=== PATIENT | male | born 1940 | race Caucasian/White ===

== ENCOUNTER 2016-06-10 10:01 | Emergency (ER) | payer MEDICARE, BC ==
[~2016-06-10] VITALS: Ht 180.3 cm; Wt 83.0 kg
[~2016-06-10 10:01] MED LIST: CILO100T PO; CLOP75 PO; ESZO3 PO; FLOV100A IN; GLUCTAB OR; LEVA500T PO; LEVO112T2 PO; NUVI150T2 OR; OMEP20TA OR; OXYC30TA PO; PRED20 PO; SALM50I INH; SPIRCAP INH; TAMS0.4C67 PO; VYTO10TA32 PO; WAL-10TA2 PO; Z.0.OXYGEN INH; [UNRECOGNIZED DRUG - CODE]
[2016-06-10 10:06] VITALS: BP 131/78; PULSE 96; RESP 18; TEMP 97.5; O2SAT 96
[2016-06-10] MEDS ORDERED: METF500T PO (10:43)
[2016-06-10] MEDS ORDERED: LYSI500C PO (10:43)
[2016-06-10] MEDS ORDERED: COQ-100C2 PO (10:43)
[2016-06-10] MEDS ORDERED: ROFL1TAB2 PO (10:43)
[2016-06-10] MEDS ORDERED: PRED10 PO (10:43)
[2016-06-10] MEDS ORDERED: ESZO1TAB4 PO (10:43)
[2016-06-10] MEDS ORDERED: MULT-135 PO (10:43)
[2016-06-10] MEDS ORDERED: LEVO-168 PO (10:43)
[2016-06-10] MEDS ORDERED: OMEP20CA2 PO (10:43)
[2016-06-10] MEDS ORDERED: OXYC30TA PO (10:43)
[2016-06-10] MEDS ORDERED: B CO1TAB2 PO (10:43)
[2016-06-10] MEDS ORDERED: GLYB2.5T3 PO (10:43)
[2016-06-10] MEDS ORDERED: AZIT500T2 PO (10:43)
[2016-06-10] MEDS ORDERED: VYTO10TA8 PO (10:43)
[2016-06-10] MEDS ORDERED: CLOP75TA PO (10:43)
[2016-06-10] MEDS ORDERED: ARMO250T PO (10:43)
[2016-06-10] MEDS ORDERED: TRAM50TA PO (10:43)
[2016-06-10] MEDS ORDERED: TAMS0.4C4 PO (10:43)
[2016-06-10] MEDS ORDERED: LORA-361 PO (10:43)
[2016-06-10] MEDS ORDERED: FLUT1SPR17 EACH NARE (10:43)
[2016-06-10] MEDS ORDERED: CILO100T PO (10:43)
[2016-06-10] MEDS ORDERED: ONDANSETRON HCL 4 MG/2 ML VIAL IVP ONE (10:45)
[2016-06-10] MEDS ORDERED: ALUMINUM/MAGNESIUM/SIMETH 30 ML CUP PO ONE (10:45)
[2016-06-10] MEDS ORDERED: LIDOCAINE VISCOUS 2% SOLN 15 ML UDC PO ONE (10:45)
[2016-06-10] MEDS ORDERED: FAMOTIDINE 20 MG/2 ML VIAL IV PUSH ONE (10:45)
[2016-06-10] MEDS ORDERED: SODIUM CHLORIDE 0.9% FLUSH 5 ML FLUSH IVF PRN (10:45)
[2016-06-10] MEDS ORDERED: PANTOPRAZOLE SODIUM 40 MG VIAL IVP ONE (10:45)
--- NOTE | 2016-06-10 10:52 | PD ---
HPI Chief Complaint: Abdominal Pain Time Seen by Provider: 10:42 Travel History International Travel<30 days: No Contact w/Intl Traveler<30days: No Traveled to known affect area: No History of Present Illness HPI She presents with complaints of epigastric abdominal pain times one day. Denies any nausea or vomiting. Denies any previous abdominal surgeries. Denies any change in bowel movements. Last bowel movement yesterday. Denies fever. He does have kidney stones and is scheduled for lithotripsy this week. Takes pain medication every 4 hours chronically. PFSH Past Medical History Hx Anticoagulant Therapy: Yes (PLAVIX) Arthritis: Yes Asthma: No Blood Disorders: No Anxiety: No Depression: No Heart Rhythm Problems: No Cancer: Yes (LUNG CA) Cardiovascular Problems: Yes (CHOL) High Cholesterol: Yes Chemotherapy: Yes Chest Pain: No Congestive Heart Failure: Yes (states no but recal says yes ) COPD: Yes Cerebrovascular Accident: No Diabetes: Yes Patient Takes Glucophage: Yes Diminished Hearing: No Endocrine: No Gastrointestinal Disorders: No GERD: No Glaucoma: No Genitourinary: No Headaches: No Hepatitis: No Hiatal Hernia: No Hypertension: Yes Immune Disorder: No Implanted Vascular Access Dvce: No Kidney Stones: No Musculoskeletal: No Neurologic: No Psychiatric: No Reproductive: No Respiratory: Yes (COPD) Immunizations Current: Yes Migraines: No Myocardial Infarction: No Radiation Therapy: Yes Renal Failure: No Seizures: No Sickle Cell Disease: No Sleep Apnea: No Thyroid Disease: No Ulcer: No Influenza Vaccination: Yes PNEUMOCCOCAL Vaccine (Year): 208 Past Surgical History Abdominal Surgery: No AICD: No Appendectomy: No Arteriovenous Shunt: No Cardiac Surgery: No Cholecystectomy: No Ear Surgery: No Endocrine Surgery: No Eye Surgery: No Genitourinary Surgery: No Gynecologic Surgery: No Insulin Pump: No Joint Replacement: No Neurologic Surgery: No Pacemaker: No Thoracic Surgery: No Other Surgery: Yes (1/2 OF RT LUNG REMOVED 12 YRS AGO) Social History Alcohol Use: Yes (OCC) Tobacco Use: No Substance Use: No Allergies-Medications (Allergen,Severity, Reaction): Coded Allergies: No Known Allergies (Verified , 06/10/16) Reported Meds & Prescriptions Reported Meds & Active Scripts Active Reported Hm Allergy Relief Nasal S (Fluticasone Propionate (Nasal)) 50 Mcg/Act Spr 1 [place] EACH NARE HS Clopidogrel (Clopidogrel Bisulfate) 75 Mg Tab 75 Mg PO DAILY Vytorin (Ezetimibe-Simvastatin) 10-20 Mg Tab 1 Tab PO HS Eszopiclone 3 Mg Tab 3 Mg PO HS PRN Claritin (Loratadine) 10 Mg Tab 10 Mg PO DAILY Glyburide 2.5 Mg Tab 2.5 Mg PO BID Take with meals at the same time each day Azithromycin 500 Mg Tab 500 Mg PO M/W/ Cilostazol 100 Mg Tab 100 Mg PO BID Daliresp (Roflumilast) 500 Mcg Tab 500 Mcg PO DAILY Prednisone 10 Mg Tab 10 Mg PO M/W/F Nuvigil (Armodafinil) 250 Mg Tab 250 Mg PO DAILY Metformin (Metformin HCl) 500 Mg Tab 500 Mg PO BIDPC With meals Tamsulosin (Tamsulosin HCl) 0.4 Mg Cap 0.4 Mg PO HS Omeprazole 20 Mg Cap 1 Tab PO DAILY Levothyroxine (Levothyroxine Sodium) 112 Mcg Tab 112 Mcg PO DAILY Coq-10 (Coenzyme Q10 (Ubidecarenone)) 100 Mg Cap 1 Cap PO DAILY Multi Vitamin (Multiple Vitamin) 1 Tab Tab 1 Tab PO DAILY Oxycodone (Oxycodone HCl) 30 Mg Tab 30 Mg PO Q4HR Tramadol (Tramadol HCl) 50 Mg Tab 50 Mg PO TID Lysine 500 Mg Cap 1,000 Mg PO DAILY B Complex W/ C 1 Tab Tab 1 Tab PO DAILY Review of Systems General / Constitutional: No: Fever Eyes: No: Visual changes HENT: No: Headaches Cardiovascular: No: Chest Pain or Discomfort Respiratory: No: Shortness of Breath Gastrointestinal: Positive: Abdominal Pain Genitourinary: No: Dysuria Musculoskeletal: No: Pain Skin: No Rash Neurologic: No: Weakness Psychiatric: No: Depression Endocrine: No: Polydipsia Hematologic/Lymphatic: No: Easy Bruising Physical Exam Narrative GENERAL: Well-nourished, well-developed patient. SKIN: Warm and dry. HEAD: Normocephalic. EYES: No scleral icterus. No injection or drainage. NECK: Supple, trachea midline. No JVD or lymphadenopathy. CARDIOVASCULAR: Regular rate and rhythm without murmurs, gallops, or rubs. RESPIRATORY: Breath sounds equal bilaterally. No accessory muscle use. GASTROINTESTINAL: Abdomen soft, tender in the epigastric region nondistended. MUSCULOSKELETAL: No cyanosis, or edema. BACK: Nontender without obvious deformity. No CVA tenderness. Data Data Last Documented VS Vital Signs Date Time Temp Pulse Resp B/P Pulse Ox O2 Delivery O2 Flow Rate FiO2 06/10/16 13:33 95 18 123/58 97 Nasal Cannula 3 06/10/16 10:06 97.5 Orders Complete Blood Count With Diff (06/10/16 10:42) Comprehensive Metabolic Panel (06/10/16 10:42) Lipase (06/10/16 10:42) Lactic Acid (06/10/16 10:42) Urinalysis - C+S If Indicated (06/10/16 10:42) Ct Abd/Pel W Iv Contrast(Rout) (06/10/16 10:42) Iv Access Insert/Monitor (06/10/16 10:42) Ecg Monitoring (06/10/16 10:42) Oximetry (06/10/16 10:42) Ondansetron Inj (Zofran Inj) (06/10/16 10:45) Pantoprazole Inj (Protonix Inj) (06/10/16 10:45) Sodium Chloride 0.9% Flush (Ns Flush) (06/10/16 10:45) Famotidine Inj (Pepcid Inj) (06/10/16 10:45) Al-Mag Hy-Si 40-40-4 Mg/Ml Liq (Mag-Al P (06/10/16 10:45) Lidocaine 2% Viscous (Xylocaine 2% Visco (06/10/16 10:45) Oral Contrast - Adult (06/10/16 11:41) Diatrizoate Liq ( Gastroview Liq) (06/10/16 11:46) Oxycodone (Roxicodone) (06/10/16 12:15) Iohexol 350 Inj (Omnipaque 350 Inj) (06/10/16 13:05) Labs Laboratory Tests Test 06/10/16 06/10/16 10:55 13:17 White Blood Count 5.8 TH/MM3 Red Blood Count 4.88 MIL/MM3 Hemoglobin 14.5 GM/DL Hematocrit 44.0 % Mean Corpuscular Volume 90.2 FL Mean Corpuscular Hemoglobin 29.8 PG Mean Corpuscular Hemoglobin 33.0 % Concent Red Cell Distribution Width 13.9 % Platelet Count 183 TH/MM3 Mean Platelet Volume 8.6 FL Neutrophils (%) (Auto) 76.0 % Lymphocytes (%) (Auto) 9.7 % Monocytes (%) (Auto) 13.0 % Eosinophils (%) (Auto) 1.0 % Basophils (%) (Auto) 0.3 % Neutrophils # (Auto) 4.3 TH/MM3 Lymphocytes # (Auto) 0.6 TH/MM3 Monocytes # (Auto) 0.8 TH/MM3 Eosinophils # (Auto) 0.1 TH/MM3 Basophils # (Auto) 0.0 TH/MM3 CBC Comment DIFF FINAL Differential Comment Sodium Level 139 MEQ/L Potassium Level 3.6 MEQ/L Chloride Level 101 MEQ/L Carbon Dioxide Level 28.4 MEQ/L Anion Gap 10 MEQ/L Blood Urea Nitrogen 9 MG/DL Creatinine 0.74 MG/DL Estimat Glomerular Filtration 103 ML/MIN Rate Random Glucose 111 MG/DL Lactic Acid Level 1.1 mmol/L Calcium Level 8.4 MG/DL Total Bilirubin 0.5 MG/DL Aspartate Amino Transf 15 U/L (AST/SGOT) Alanine Aminotransferase 20 U/L (ALT/SGPT) Alkaline Phosphatase 56 U/L Total Protein 7.6 GM/DL Albumin 3.3 GM/DL Lipase 64 U/L Urine Collection Type CLEAN CATCH Urine Color YELLOW Urine Turbidity SLIGHT Urine pH 6.0 Urine Specific [place] 1.016 Urine Protein 30 mg/dL Urine Glucose (UA) NEG mg/dL Urine Ketones 40 mg/dL Urine Occult Blood LARGE Urine Nitrite NEG Urine Bilirubin NEG Urine Leukocyte Esterase NEG Urine RBC 100-200 /hpf Urine Squamous Epithelial 6-8 /hpf Cells Urine Amorphous Sediment MOD Microscopic Urinalysis Comment CULT NOT INDICATED Urine Collection Time 1318 MDM Medical Decision Making Medical Screen Exam Complete: Yes Emergency Medical Condition: Yes Differential Diagnosis Gastritis, gastric ulcer, duodenal ulcer, pancreatitis Narrative Course Assessment and plan discussed with patient and at bedside. labs reviewed Last 72 hours Impressions Abdomen/Pelvis CT 06/10/16 1042 Signed Impressions: Service Date/Time: Friday, June 10, 2016 12:57 - CONCLUSION: 1. Mild obstructive uropathy secondary to a left mid ureteral calculus measuring 5-6 mm. 2. Diverticulosis without diverticulitis. 3. Subcentimeter hepatic low-density likely benign. Jean Claude Mayfield MD Diagnosis Primary Impression: Epigastric discomfort Patient Instructions: General Instructions Additional Instructions: Increase omeprazole to twice a day, start Zantac 150 mg by mouth twice a day, follow-up with PCP to assess progress. Keep regular scheduled appointment for lithotripsy. Encouraged a bland high-fiber BRAT diet. Encouraged to avoid aggravating factors of reflux including but not limited to alcohol tobacco late large meals spicy meals and weight Med/Other Pt SpecificInfo: Prescription(s) given Disposition: 01 DISCHARGE HOME Condition: Good Constantino Powell MD Jun 10, 2016 10:52
[2016-06-10 10:59] VITALS: O2SAT 98
[2016-06-10 11:03] LABS: AUTOMATED NEUTROPHIL # 4.3 TH/MM3 (1.8-7.7); BASOPHIL % 0.3 % (0.0-2.0); EOSINOPHIL # 0.1 TH/MM3 (0-0.4); HEMO FLAGS DIFF FINAL; LYMPH % 9.7 % (9.0-44.0); LYMPHOCYTE # 0.6 TH/MM3 (1.0-4.8); MEAN CELL VOLUME 90.2 FL (80.0-100.0); MEAN CORPUSCULAR HEMOGLOBIN 29.8 PG (27.0-34.0); PLATELET COUNT 183 TH/MM3 (150-450); RED BLOOD COUNT 4.88 MIL/MM3 (4.50-5.90); RED CELL DISTRIBUTION WIDTH 13.9 % (11.6-17.2); WHITE BLOOD COUNT 5.8 TH/MM3 (4.0-11.0)
[2016-06-10 11:09] LABS: CHLORIDE 101 MEQ/L (98-107); POTASSIUM 3.6 MEQ/L (3.5-5.1); SODIUM (NA) 139 MEQ/L (136-145)
[2016-06-10 11:13] LABS: ANION GAP 10 MEQ/L (5-15); BICARBONATE 28.4 MEQ/L (21.0-32.0)
[2016-06-10 11:14] LABS: BLOOD UREA NITROGEN 9 MG/DL (7-18)
[2016-06-10 11:16] LABS: ALT (GPT) 20 U/L (12-78); AST (GOT) 15 U/L (15-37); GLOMERULAR FILTRATION RATE 103 ML/MIN (>89)
[2016-06-10 11:18] LABS: TOTAL BILIRUBIN ADULT 0.5 MG/DL (0.2-1.0)
[2016-06-10 11:19] LABS: ALKALINE PHOSPHATASE 56 U/L (45-117)
[2016-06-10] MEDS ORDERED: DIATRIZOATE MEGLUM/DIATRIZOATE SOD 9 ML CUP ONE (11:46)
[2016-06-10] MEDS ORDERED: IOHEXOL 350 MG/ML 10 ML VIAL (for RAD DIAG) IV ONE (13:05)
[2016-06-10 13:21] LABS: BLOOD, URINE LARGE (NEG); GLUCOSE,URINE NEG (NEG); KETONE, URINE 40 mg/dL (NEG); NITRITE,URINE NEG (NEG)
[2016-06-10 13:22] LABS: METHOD OF COLLECTION CLEAN CATCH; URINE COLOR YELLOW (YELLW/STRAW)
--- NOTE | 2016-06-10 13:26 | RADHPO ---
EXAM DATE/TIME: 06/10/2016 12:57 [facility] COMPARISON: CT ABDOMEN & PELVIS W CONTRAST, April 07, 2012, 18:12. INDICATIONS : Umbilical abdomen pain for three days. IV CONTRAST: 71 cc Omnipaque 350 (iohexol) IV ORAL CONTRAST: Prescribed oral contrast ingested. RADIATION DOSE: 14.74 CTDIvol (mGy) MEDICAL HISTORY : Renal calculi. Chronic obstructive pulmonary disease. diabetes, hypertension, lung cancer SURGICAL HISTORY : Lobectomy. ENCOUNTER: Initial ACUITY: 3 days PAIN SCALE: 5/10 LOCATION: umbilical abdomen TECHNIQUE: Volumetric scanning of the abdomen and pelvis was performed. Using automated exposure control and ad justment of the mA and/or kV according to patient size, radiation dose was kept as low as reasonably achievable to obtain optimal diagnostic quality images. FINDINGS: LOWER LUNGS: The visualized lower lungs are clear. LIVER: Homogeneous density without dilation of the biliary tree. No calcified gallstones. Subcentimeter low densities. Calcified lymph nodes in the darcy hepatis. SPLEEN: Normal size without lesion. PANCREAS: Within normal limits. KIDNEYS: Normal in size and shape. There is no mass, stone or hydronephrosis on the right. Mild obstructive u ropathy in the left secondary to a left mid ureteral calculus measuring 5-6 mm. ADRENAL GLANDS: Within normal limits. VASCULAR: There is no aortic aneurysm. BOWEL/MESENTERY: Diverticulosis without diverticulitis. There is no free intraperitoneal air or fluid. ABDOMINAL WALL: Within normal limits. RETROPERITONEUM: There is no lymphadenopathy. BLADDER: No wall thickening or mass. REPRODUCTIVE: Within normal limits. INGUINAL: There is no lymphadenopathy or hernia. MUSCULOSKELETAL: Within normal limits for patient age. CONCLUSION: 1. Mild obstructive uropathy secondary to a left mid ureteral calculus measuring 5-6 mm. 2. Diverticulosis without diverticulitis. 3. Subcentimeter hepatic low-density likely benign. Jean Claude Mayfield MD on June 10, 2016 at 13:22 Board Certified Radiologist. This report was verified electronically.
[2016-06-10 13:28] LABS: COMMENT (UR) CULT NOT INDICATED; COMMENT2 (UR) MUCOUS PRESENT; CULTURE IF INDICATED CULT NOT INDICATED; RBC, URINE 100-200 /hpf (0-3)
[2016-06-10 13:33] VITALS: BP 123/58; PULSE 95; RESP 18; O2SAT 97
== END 2016-06-10 14:10 | disposition home or self-care (01) ==
LOC: PHED 10:01
DX: R10.13 Epigastric pain (principal); N20.0 Calculus of kidney; E78.00 Pure hypercholesterolemia, unspecified; J44.9 Chronic obstructive pulmonary disease, unspecified; E11.9 Type 2 diabetes mellitus without complications; I10 Essential (primary) hypertension
CPT/HCPCS: 74177; 80053; 81001; 83605; 83690; 85025; 96374; 96375; 99284; C9113; J2405; Q9963; Q9967

== ENCOUNTER → 2016-06-28 | Day surgery (SDC) | payer MEDICARE, BC ==
[~2016-06-28] MED LIST changes: +ARMO250T PO; +AZIT500T2 PO; +B CO1TAB2 PO; -CLOP75 PO; +CLOP75TA PO; +COQ-100C2 PO; +ESZO1TAB4 PO; -ESZO3 PO; -FLOV100A IN; +FLUT1SPR17 EACH NARE; -GLUCTAB OR; +GLYB2.5T3 PO; -LEVA500T PO; +LEVO-168 PO; -LEVO112T2 PO; +LIDOCAINE HCL 1% PF 30 ML VIAL INFIL ONE; +LORA-361 PO; +LYSI500C PO; +MEPERIDINE HCL 25 MG/ML VIAL IV ONE; +METF500T PO; +MIDAZOLAM HCL 2 MG/2 ML VIAL IV ONE; +MULT-135 PO; -NUVI150T2 OR; +OMEP20CA2 PO; -OMEP20TA OR; +PRED10 PO; -PRED20 PO; +PROPOFOL 200 MG/20 ML AMP IV ONE; +ROFL1TAB2 PO; -SALM50I INH; +SODIUM CHLORIDE 0.9% 10 ML VIAL ONE; -SPIRCAP INH; +TAMS0.4C4 PO; -TAMS0.4C67 PO; +TRAM50TA PO; -VYTO10TA32 PO; +VYTO10TA8 PO; -WAL-10TA2 PO; -Z.0.OXYGEN INH; -[UNRECOGNIZED DRUG - CODE]; +methylPREDNISolone ACETATE 40 MG/ML VIAL I-ARTICULR ONE
--- NOTE | 2016-06-28 13:40 | M6 ---
cc: ABBY LORD M.D. DATE 06/28/2016 DATE OF 1940 PROCEDURE Radiofrequency rhizotomy multiple bilateral lumbar facet joints (bilateral L3-4, L4-5 and L5-S1 facet joints Three levels are being done because imaging studies show arthritis in all lumbar facet joints and because each facet joint is innervated by the medial branches from the nerves above and below that particular joint. The patient reported 50% or greater pain relief from previous diagnostic facet joint blocks done with fluoroscopic guidance. PROCEDURE NOTE History and physical was completed and signed. Consent was signed. Procedure site was marked. Medications were listed and reconciled. Pain score was recorded. Allergies were noted. Time out was taken. Fluoroscopy time was recorded where applicable. Sedation was administered or directed by Dr. Lord. The patient was given oxygen. The patient was monitored by a registered nurse. Total procedure time was greater than 15 minutes. An IV was started, blood pressure cuff, pulse oximeter and EKG were applied. The patient was placed in the prone position on a [place] table, sedated with small amounts of Versed and fentanyl and Propofol titrated to effect. Vital signs were monitored and remained stable throughout the procedure. The lumbar area was scrubbed with antimicrobial solution, prepped with 10% Betadine solution, draped with sterile drapes. Fluoroscopy was used in a slightly oblique angle (Kristian dog view) to clearly visualize the target areas which were the cephalad most medial angle of the transverse processes as they met the pedicle in the anatomical location of the medial branch of the posterior primary ramus bilateral L3-4, L4-5 and L5-S1 facet joints. The skin was infiltrated with 1% Xylocaine using a 27 gauge needle. An insulated 20 gauge radiofrequency needle with a 10 mm curved tip was advanced to the above-mentioned target areas. Fluoroscopy was used to confirm the needle was properly placed and not near the nerve root. At no time did the patient report any paresthesias down the lower extremity. Once properly positioned thermal lesions took place at 80 degrees Centigrade x 100 seconds at each location. Then, a small amount of Depo-Medrol was injected at each location for a total of 40 mg of Depo-Medrol. Following this the patient was taken to the recovery room with stable vital signs, neurologically intact. W. MD FRANNY Wen/OLGA /8:14 AM /1:28 PM
== END | disposition home or self-care (01) ==
LOC: PHSDC 06:32
PROVIDERS: ATTEND Pain Medicine Interventional Pain Medicine
DX: M54.5 Low back pain (principal)
CPT/HCPCS: 64635; 64636; 99152; 99153; J1030; J2175; J2250

== ENCOUNTER → 2016-08-03 | Outpatient (CLI) | payer MEDICARE, BC ==
[~2016-08-03] MED LIST changes: -GLYB2.5T3 PO; -LIDOCAINE HCL 1% PF 30 ML VIAL INFIL ONE; -MEPERIDINE HCL 25 MG/ML VIAL IV ONE; -MIDAZOLAM HCL 2 MG/2 ML VIAL IV ONE; -PROPOFOL 200 MG/20 ML AMP IV ONE; -SODIUM CHLORIDE 0.9% 10 ML VIAL ONE; -methylPREDNISolone ACETATE 40 MG/ML VIAL I-ARTICULR ONE
[2016-08-03 13:37] LABS: HDL CHOLESTEROL 77.9 MG/DL (40.0-60.0); LDL CHOLESTEROL 78 MG/DL (0-99)
[2016-08-03 17:16] LABS: HEMOGLOBIN A1a 0.9 %; HEMOGLOBIN A1b 2.2 %; HEMOGLOBIN Ao 84.2 %
== END ==
LOC: PLAB 09:23
PROVIDERS: ATTEND Urology
DX: J44.1 Chronic obstructive pulmonary disease with (acute) exacerbation (principal); E78.2 Mixed hyperlipidemia; E03.8 Other specified hypothyroidism; E11.9 Type 2 diabetes mellitus without complications; Z12.5 Encounter for screening for malignant neoplasm of prostate
CPT/HCPCS: 36415; 80061; 83036; 84443; 87070; 87205; G0103

== ENCOUNTER → 2017-05-27 | Outpatient (CLI) | payer MEDICARE, BC ==
[~2017-05-27] MED LIST changes: -ARMO250T PO; +[UNRECOGNIZED DRUG - CODE] PO
[2017-05-27 12:10] LABS: AUTOMATED NEUTROPHIL # 8.7 TH/MM3 (1.8-7.7); BASOPHIL % 0.3 % (0.0-2.0); EOSINOPHIL # 0.2 TH/MM3 (0-0.4); EOSINOPHIL % 1.3 % (0.0-4.0); HEMATOCRIT 43.6 % (39.0-51.0); HEMOGLOBIN 14.4 GM/DL (13.0-17.0); LYMPH % 17.1 % (9.0-44.0); MEAN CELL VOLUME 94.1 FL (80.0-100.0); MEAN CORPUSCULAR HEMOGLOBIN 31.2 PG (27.0-34.0); MEAN CORPUSCULAR HGB CONC 33.1 % (32.0-36.0); MEAN PLATELET VOLUME 9.5 FL (7.0-11.0); MONO % 6.4 % (0.0-8.0); MONOCYTE # 0.7 TH/MM3 (0-0.9); NEUT % 74.9 % (16.0-70.0); PLATELET COUNT 144 TH/MM3 (150-450); RED BLOOD COUNT 4.63 MIL/MM3 (4.50-5.90); RED CELL DISTRIBUTION WIDTH 15.1 % (11.6-17.2); WHITE BLOOD COUNT 11.6 TH/MM3 (4.0-11.0)
[2017-05-27 12:28] LABS: ALBUMIN 3.5 GM/DL (3.4-5.0); AST (GOT) 10 U/L (15-37); BICARBONATE 29.7 MEQ/L (21.0-32.0); BLOOD UREA NITROGEN 14 MG/DL (7-18); CALCIUM 8.9 MG/DL (8.5-10.1); CHLORIDE 106 MEQ/L (98-107); CREATININE 0.62 MG/DL (0.60-1.30); GLOMERULAR FILTRATION RATE 126 ML/MIN (>89); GLUCOSE,FASTING 127 MG/DL (74-99); SODIUM (NA) 144 MEQ/L (136-145)
[2017-05-27 12:29] LABS: ALT (GPT) 26 U/L (12-78); CHOLESTEROL 160 MG/DL (120-200); TRIGLYCERIDES 160 MG/DL (42-150)
[2017-05-27 12:38] LABS: ALKALINE PHOSPHATASE 64 U/L (45-117); CHOLESTEROL/ HDL RATIO 2.62 RATIO; LDL CHOLESTEROL 67 MG/DL (0-99); TOTAL BILIRUBIN ADULT 0.2 MG/DL (0.2-1.0); TOTAL PROTEIN 6.7 GM/DL (6.4-8.2)
== END ==
LOC: PLAB 09:20
PROVIDERS: ATTEND Family Medicine
DX: G47.00 Insomnia, unspecified (principal); I70.219 Atherosclerosis of native arteries of extremities with intermittent claudication, unspecified extremity; N20.0 Calculus of kidney; E03.8 Other specified hypothyroidism; E11.9 Type 2 diabetes mellitus without complications
CPT/HCPCS: 36415; 80053; 80061; 83036; 84443; 85025